=== PATIENT | male | born 1975 | race Caucasian/White ===

== ENCOUNTER 2017-03-24 09:43 | Emergency (ER) | payer BC ==
[2017-03-24 10:01] VITALS: BP 137/81
[2017-03-24] MEDS ORDERED: Sodium Chloride 0.9% 10 ML Syringe FLUSH PRN (10:35)
[2017-03-24] MEDS ORDERED: HYDROmorphone 1 MG/ML Syringe IVPUSH ONE (10:37)
[2017-03-24] MEDS ORDERED: Metoclopramide 10 MG/2 ML SDV IVPUSH ONE (10:38)
[2017-03-24] MEDS ORDERED: Clindamycin Phosphate 600 MG in Sodium Chloride 0.9% 100 ML IV ONE (10:38)
[2017-03-24] MEDS ORDERED: Lactated Ringers 1,000 ML IV SCH (10:45)
--- NOTE | 2017-03-24 10:50 | EDM.PDOC ---
ED HPI GENERAL MEDICAL PROBLEM - General Chief Complaint: Skin Complaint Stated Complaint: ABCESS ON HIS BUTOCK Time Seen by Provider: 03/24/17 10:06 Source of Information: Reports: Patient History Limitations: Reports: No Limitations - History of Present Illness INITIAL COMMENTS - FREE TEXT/NARRATIVE: The patient presents with an abscess to his buttocks. This started about 1 week ago. The pain has been getting worse and he went to the walk in clinic yesterday and they put him on some amoxicillin. There is more pain and swelling now. He denies fever or chills. He has no drainage today. He is scheduled to see Dr Monge on but he is not sure if he can make it. Onset: Gradual Duration: Week(s): (1) Location: Reports: Other (Left buttock) Quality: Reports: Sharp Severity: Severe Improves with: Reports: Immobilization Worsens with: Reports: Movement (and sitting down) Associated Symptoms: Reports: No Other Symptoms Rectal Pain Score (Numeric/FACES): 8 - Related Data Allergies Allergy/AdvReac Type Severity Reaction Status Date / Time No Known Allergies Allergy Verified 03/24/17 09:55 Home Meds: Home Meds Antibiotic Pill 1 tab PO BID 03/24/17 [History] Hydrocodone/Acetaminophen [Hydrocodon-Acetaminophen 5-325] 1 - 2 each PO Q6HR PRN #20 tablet 03/24/17 [Rx] Testerone Creme 1 mg PO DAILY 03/24/17 [History] metFORMIN [Glucophage] 1,000 mg PO BID 03/24/17 [History] Past Medical History Musculoskeletal History: Reports: Other (See Below) Other Musculoskeletal History: corrected foot surgery - Past Surgical History GI Surgical History: Reports: Appendectomy Social & Family History - Tobacco Use Smoking Status *Q: Never Smoker - Caffeine Use Caffeine Use: Reports: Coffee, Energy Drinks, Soda, Tea - Recreational Drug Use Recreational Drug Use: No ED ROS GENERAL - Review of Systems Review Of Systems: See Below Constitutional: Reports: No Symptoms HEENT: Reports: No Symptoms Respiratory: Reports: No Symptoms Cardiovascular: Reports: No Symptoms Endocrine: Reports: No Symptoms GI/Abdominal: Reports: No Symptoms : Reports: No Symptoms Musculoskeletal: Reports: No Symptoms Skin: Reports: Other (Abscess to the buttock) ED EXAM, SKIN/RASH Exam: See Below Exam Limited By: No Limitations General Appearance: Alert, No Apparent Distress Ears: Normal External Exam Nose: Normal Inspection Head: Atraumatic, Normocephalic Neck: Normal Inspection Respiratory/Chest: No Respiratory Distress Rectal (Males) Exam: Other (Perirectal abscess to the left of the anus. Pain upon palpation with erythema and edema.) Course - Vital Signs Last Recorded V/S: Last Vital Signs Temp 97.6 F 03/24/17 10:00 Pulse 86 03/24/17 10:00 Resp 20 03/24/17 10:00 BP 137/81 03/24/17 10:00 Pulse Ox 95 03/24/17 10:00 - Orders/Labs/Meds Orders: Active Orders 24 hr Category Date Time Status Peripheral IV Care [RC] . DIRECTED Care 03/24/17 10:35 Active Clindamycin Phosphate [Cleocin] 600 mg Med 03/24/17 10:38 Active Sodium Chloride 0.9% [Normal Saline] 100 ml IV ONETIME Lactated Ringers [Ringers, Lactated] 1,000 ml Med 03/24/17 10:45 Active IV ASDIRECTED Sodium Chloride 0.9% [Saline Flush] Med 03/24/17 10:35 Active 10 ml FLUSH ASDIRECTED PRN Peripheral IV Insertion Adult [OM.PC] Routine Oth 03/24/17 10:35 Ordered Medication Orders Clindamycin Phosphate 600 mg/ (Sodium Chloride) 104 mls @ 100 mls/hr IV ONETIME ONE Stop: 03/24/17 11:40 Lactated Ringer's (Ringers, Lactated) 1,000 mls @ 100 mls/hr IV ASDIRECTED MELISSA Sodium Chloride (Saline Flush) 10 ml FLUSH ASDIRECTED PRN PRN Reason: Keep Vein Open Meds: Medications Generic Name Dose Route Start Last Admin Trade Name Freq PRN Reason Stop Dose Admin Clindamycin Phosphate 600 mg/ 104 mls @ 100 mls/hr 03/24/17 10:38 Sodium Chloride IV 03/24/17 11:40 ONETIME ONE Lactated Ringer's 1,000 mls @ 100 mls/hr 03/24/17 10:45 Ringers, Lactated IV ASDIRECTED MELISSA Sodium Chloride 10 ml 03/24/17 10:35 Saline Flush FLUSH ASDIRECTED PRN Keep Vein Open Discontinued Medications Generic Name Dose Route Start Last Admin Trade Name Freq PRN Reason Stop Dose Admin Hydromorphone HCl 1 mg 03/24/17 10:37 Dilaudid IVPUSH 03/24/17 10:38 ONETIME ONE Metoclopramide HCl 10 mg 03/24/17 10:38 Reglan IVPUSH 03/24/17 10:39 ONETIME ONE - Re-Assessments/Exams Free Text/Narrative Re-Assessment/Exam: 03/24/17 10:47 I ordered an IV LR at 100mL/hr, reglan 10mg IV, dilaudid 1mg IV, and clindamycin 600mg IV. I called Dr Wynn and he will come take the patient to OR around noon. 03/24/17 11:02 The patient decided he did not want to get that done at this time. I will give him something for pain and he thinks the antibiotic was doxycycline and that would be more appropriate for where the infection is. Departure - Departure Time of Disposition: 11:10 Disposition: Home, Self-Care 01 Condition: Good Clinical Impression: Perirectal abscess - Discharge Information Prescriptions: Hydrocodone/Acetaminophen [Hydrocodon-Acetaminophen 5-325] 1 - 2 each PO Q6HR PRN #20 tablet PRN Reason: Pain Referrals: Joao Chan MD [Primary Care Provider] - Forms: ED Department Discharge Additional Instructions: Put warm compresses on the area a couple times per day and take the antibiotics as prescribed. You could take a hydrocodone as needed for pain. Follow up with Dr Monge. Please return if you are worse. - My Orders Last 24 Hours: My Active Orders 03/24/17 10:35 Peripheral IV Care [RC] . DIRECTED Sodium Chloride 0.9% [Saline Flush] 10 ml FLUSH ASDIRECTED PRN Peripheral IV Insertion Adult [OM.PC] Routine 03/24/17 10:38 Clindamycin Phosphate [Cleocin] 600 mg Sodium Chloride 0.9% [Normal Saline] 100 ml IV ONETIME 03/24/17 10:45 Lactated Ringers [Ringers, Lactated] 1,000 ml IV ASDIRECTED - Assessment/Plan Last 24 Hours: My Active Orders 03/24/17 10:35 Peripheral IV Care [RC] . DIRECTED Sodium Chloride 0.9% [Saline Flush] 10 ml FLUSH ASDIRECTED PRN Peripheral IV Insertion Adult [OM.PC] Routine 03/24/17 10:38 Clindamycin Phosphate [Cleocin] 600 mg Sodium Chloride 0.9% [Normal Saline] 100 ml IV ONETIME 03/24/17 10:45 Lactated Ringers [Ringers, Lactated] 1,000 ml IV ASDIRECTED
== END 2017-03-24 11:16 | disposition home or self-care (01) ==
LOC: JD.ED 09:43
DX: K61.1 Rectal abscess (principal); Z79.84 Long term (current) use of oral hypoglycemic drugs; Z79.899 Other long term (current) drug therapy; Z90.49 Acquired absence of other specified parts of digestive tract
CPT/HCPCS: 99283

== ENCOUNTER 2021-03-19 10:09 | Emergency (ER) | payer BC ==
[2021-03-19 10:22] VITALS: BP 146/91; PULSE 83
[2021-03-19] MEDS ORDERED: Aspirin 81 MG Tab.Chew PO ONE (10:37)
[2021-03-19] MEDS ORDERED: Sodium Chloride 0.9% 10 ML Syringe FLUSH PRN (10:37)
--- NOTE | 2021-03-19 12:31 | EDM.PDOC ---
ED HPI GENERAL MEDICAL PROBLEM - General Chief Complaint: Chest Pain Stated Complaint: CHEST PAIN Time Seen by Provider: 03/19/21 10:19 Source of Information: Reports: Patient, Family History Limitations: Reports: No Limitations - History of Present Illness INITIAL COMMENTS - FREE TEXT/NARRATIVE: The patient presents with left sided chest pain. This started Saturday and today it got much worse. He thought it was from leaving on a piece of equipment when he was working on it. Today he went for a walk with his and he had severe pain. He had to lay in the position in the car to get any relief. This has never happened to him before. He has some shortness of breath with it. He does not smoke. He has no history of heart disease. He does have border line diabetes. He has no history of hypertension or hypercholesterolemia. Onset: Gradual Duration: Day(s): (2) Location: Reports: Chest Quality: Reports: Sharp Severity: Severe Improves with: Reports: None Worsens with: Reports: None Associated Symptoms: Reports: Chest Pain, Shortness of Breath. Denies: Cough, Fever/Chills, Headaches, Nausea/Vomiting Left Chest Pain Score (Numeric/FACES): 10 - Related Data Allergies Allergy/AdvReac Type Severity Reaction Status Date / Time No Known Allergies Allergy Verified 03/19/21 10:22 Home Meds: Home Meds Testerone Creme 1 mg PO DAILY 03/24/17 [History] metFORMIN [Glucophage] 500 mg PO BID 03/24/17 [History] FLUoxetine HCl [Fluoxetine HCl] 20 mg PO DAILY 03/19/21 [History] Hydrocodone/Acetaminophen [Hydrocodone-Acetamin 5-325 mg] 1 - 2 each PO Q6H PRN #10 tablet 03/19/21 [Rx] Past Medical History Musculoskeletal History: Reports: Other (See Below) Other Musculoskeletal History: corrected foot surgery Psychiatric History: Reports: Depression - Infectious Disease History Infectious Disease History: Reports: Novel Coronavirus - Past Surgical History GI Surgical History: Reports: Appendectomy Social & Family History - Tobacco Use Tobacco Use Status *Q: Never Tobacco User - Caffeine Use Caffeine Use: Reports: Coffee - Recreational Drug Use Recreational Drug Use: No ED ROS GENERAL - Review of Systems Review Of Systems: See Below Constitutional: Reports: No Symptoms HEENT: Reports: No Symptoms Respiratory: Reports: Shortness of Breath Cardiovascular: Reports: Chest Pain Endocrine: Reports: No Symptoms GI/Abdominal: Reports: No Symptoms : Reports: No Symptoms Musculoskeletal: Reports: No Symptoms Skin: Reports: No Symptoms ED EXAM, GENERAL - Physical Exam Exam: See Below Exam Limited By: No Limitations General Appearance: Alert, No Apparent Distress Ears: Normal External Exam Nose: Normal Inspection Head: Atraumatic, Normocephalic Neck: Normal Inspection Respiratory/Chest: No Respiratory Distress, Lungs Clear, Normal Breath Sounds, Other (No pain upon palpation to the left chest. He says it is deeper then that) Cardiovascular: Regular Rate, Rhythm, No Edema, No Murmur GI/Abdominal: Soft, Non-Tender, No Organomegaly, No Mass Back Exam: Normal Inspection Extremities: Normal Inspection #1 Interpretation EKG Date: 03/19/21 Time: 10:19 Rhythm: NSR Rate (Beats/Min): 79 [place]: Normal P-Wave: Present QRS: Normal ST-T: Normal QT: Normal Course - Vital Signs Last Recorded V/S: Last Vital Signs Temp 97.8 F 03/19/21 10:19 Pulse 83 03/19/21 10:19 Resp 18 03/19/21 10:19 BP 146/91 H 03/19/21 10:19 Pulse Ox 94 L 03/19/21 10:19 - Orders/Labs/Meds Orders: Active Orders 24 hr Category Date Time Status Cardiac Monitoring [RC] . DIRECTED Care 03/19/21 10:37 Active EKG Documentation Completion [RC] STAT Care 03/19/21 10:37 Active Peripheral IV Care [RC] . DIRECTED Care 03/19/21 10:38 Active Ang Chest [CT] Stat Exams 03/19/21 11:25 Taken Chest 1V Frontal [CR] Stat Exams 03/19/21 10:38 Taken Sodium Chloride 0.9% [Saline Flush] Med 03/19/21 10:37 Active 10 ml FLUSH ASDIRECTED PRN Peripheral IV Insertion Adult [OM.PC] Stat Oth 03/19/21 10:37 Ordered Medication Orders Sodium Chloride (Sodium Chloride 0.9% 10 Ml Syringe) 10 ml FLUSH ASDIRECTED PRN PRN Reason: Keep Vein Open Last Admin: 03/19/21 10:41 Dose: 10 ml Documented by: SEAN Labs: Laboratory Tests 03/19/21 03/19/2121 Range/Units 10:30 10:30 10:30 WBC 5.03 (4.23-9.07) K/mm3 RBC 6.01 (4.63-6.08) M/mm3 Hgb 17.2 (13.7-17.5) gm/dl Hct 51.8 H (40.1-51.0) % MCV 86.2 (79.0-92.2) fl MCH 28.6 (25.7-32.2) pg MCHC 33.2 (32.2-35.5) g/dl RDW Std Deviation 46.0 H (35.1-43.9) fL Plt Count 221 (163-337) K/mm3 MPV 11.4 (9.4-12.3) fl Neut % (Auto) 56.7 (34.0-67.9) % Lymph % (Auto) 32.2 (21.8-53.1) % [place] % (Auto) 8.9 (5.3-12.2) % Eos % (Auto) 2.0 (0.8-7.0) Baso % (Auto) 0.2 (0.1-1.2) % Neut # (Auto) 2.85 (1.78-5.38) K/mm3 Lymph # (Auto) 1.62 (1.32-3.57) K/mm3 [place] # (Auto) 0.45 (0.30-0.82) K/mm3 Eos # (Auto) 0.10 (0.04-0.54) K/mm3 Baso # (Auto) 0.01 (0.01-0.08) K/mm3 D-Dimer, Quantitative 0.56 H (0.19-0.50) mg/L Sodium 143 (136-145) mEq/L Potassium 4.4 (3.5-5.1) mEq/L Chloride 107 (98-107) mEq/L Carbon Dioxide 26 (21-32) mEq/L Anion Gap 14.4 (5-15) BUN 13 (7-18) mg/dL Creatinine 1.0 (0.7-1.3) mg/dL Est Cr Clr Drug Dosing 105.03 mL/min Estimated GFR (MDRD) > 60 (>60) mL/min BUN/Creatinine Ratio 13.0 L (14-18) Glucose 128 H (70-99) mg/dL Calcium 8.1 L (8.5-10.1) mg/dL Total Bilirubin 0.6 (0.2-1.0) mg/dL AST 20 (15-37) U/L ALT 49 (16-63) U/L Alkaline Phosphatase 67 (46-116) U/L Troponin I < 0.017 (0.00-0.056) ng/mL Total Protein 6.8 (6.4-8.2) g/dl Albumin 3.8 (3.4-5.0) g/dl Globulin 3.0 gm/dL Albumin/Globulin Ratio 1.3 (1-2) Meds: Medications Generic Name Dose Route Start Last Admin Trade Name Freq PRN Reason Stop Dose Admin Sodium Chloride 10 ml 03/19/21 10:37 03/19/21 10:41 Sodium Chloride 0.9% 10 Ml Syringe FLUSH 10 ml ASDIRECTED PRN Administration Keep Vein Open Discontinued Medications Generic Name Dose Route Start Last Admin Trade Name Freq PRN Reason Stop Dose Admin Aspirin 324 mg 03/19/21 10:37 03/19/21 10:50 Aspirin 81 Mg Tab.Chew PO 03/19/21 10:38 324 mg ONETIME ONE Administration - Re-Assessments/Exams Free Text/Narrative Re-Assessment/Exam: 03/19/21 12:33 I ordered an IV saline lock, EKG, CXR, labs and aspirin. His EKG shows a NSR with no acute changes. His CXR looks good. His CBC is normal. His d-dimer is elevated at 0.56. His CMP looks good. His troponin is negative. I have ordered a CT angio of his chest. 03/19/21 13:[address] shows no pulmonary emboli. Left adrenal nodule consistent with benign adenoma. He still has some pain. I feel this is chest wall. Departure - Departure Time of Disposition: 13:25 Disposition: Home, Self-Care 01 Condition: Good Clinical Impression: Chest wall pain Prescriptions: Hydrocodone/Acetaminophen [Hydrocodone-Acetamin 5-325 mg] 1 - 2 each PO Q6H PRN #10 tablet PRN Reason: Pain Referrals: Joao Chan MD [Primary Care Provider] - 1 Week Forms: ED Department Discharge Additional Instructions: Take tylenol or motrin as needed for pain. If that does not work, try the hydrocodone. Follow up with your doctor this week. Please return if you are worse. Sepsis Event Note (ED) - Focused Exam Vital Signs: Vital Signs Temp Pulse Resp BP Pulse Ox 03/19/21 10:19 97.8 F 83 18 146/91 H 94 L - My Orders Last 24 Hours: My Active Orders 03/19/21 10:37 Cardiac Monitoring [RC] . DIRECTED EKG Documentation Completion [RC] STAT Sodium Chloride 0.9% [Saline Flush] 10 ml FLUSH ASDIRECTED PRN Peripheral IV Insertion Adult [OM.PC] Stat 03/19/21 10:38 Peripheral IV Care [RC] . DIRECTED Chest 1V Frontal [CR] Stat 03/19/21 11:25 Ang Chest [CT] Stat - Assessment/Plan Last 24 Hours: My Active Orders 03/19/21 10:37 Cardiac Monitoring [RC] . DIRECTED EKG Documentation Completion [RC] STAT Sodium Chloride 0.9% [Saline Flush] 10 ml FLUSH ASDIRECTED PRN Peripheral IV Insertion Adult [OM.PC] Stat 03/19/21 10:38 Peripheral IV Care [RC] . DIRECTED Chest 1V Frontal [CR] Stat 03/19/21 11:25 Ang Chest [CT] Stat
[2021-03-19] MEDS ORDERED: HYDROmorphone 0.5 MG/0.5 ML Syringe IVPUSH ONE (13:16)
--- NOTE | 2021-03-19 19:37 | CT ---
CT chest Technique: Multiple axial sections were obtained from above the dome of the diaphragm inferiorly through the pubic symphysis. Intravenous contrast was utilized. Study has been performed as a pulmonary angiogram protocol. Comparison: No prior chest imaging is available. Findings: Pulmonary arteries are well opacified. No filling defects are seen to indicate pulmonary embolism. Thoracic aorta shows no aneurysm. Mediastinum and hilar regions show no adenopathy. No pericardial thickening is appreciated. Visualized upper abdominal structures show a low-density lesion within the left adrenal gland measuring 1.9 cm most likely representing a small adrenal adenoma. Lungs show no acute parenchymal change. Minimal dependent atelectasis is noted posteriorly within both lungs. Bone window settings were reviewed which show scattered endplate spurring within the mid and lower thoracic spine. No acute osseous abnormality is appreciated. Impression: 1. No findings of pulmonary embolism. 2. Left adrenal nodule most likely representing a benign adenoma. 3. Nothing acute is otherwise seen. Diagnostic code #2 I agree with preliminary report from [facility], finalized on 03/19/21, 1:51 PM CDT, code 1 Diagnostic code #1
--- NOTE | 2021-03-19 19:47 | CR ---
Chest: Portable view of the chest was obtained. Comparison: No prior chest imaging is available. Heart size and mediastinum are normal. Lungs are clear with no acute parenchymal change. Bony structures show nothing acute. Impression: 1. Nothing acute is seen on portable chest x-ray. Diagnostic code #1
== END 2021-03-19 13:30 | disposition home or self-care (01) ==
LOC: JD.ED 10:09
DX: R07.89 Other chest pain (principal); R79.1 Abnormal coagulation profile; Z86.16 Personal history of COVID-19
CPT/HCPCS: 36415; 71045; 71275; 80053; 84484; 85025; 85379; 93005; 96374; 99285; A9270; J1170; 93010; 99284

== ENCOUNTER 2021-03-22 06:43 | Emergency (ER) | payer BC ==
[2021-03-22 06:51] VITALS: BP 145/88; PULSE 82
[2021-03-22] MEDS ORDERED: cefTRIAXone 1 GM in Sodium Chloride 0.9% 100 ML IV STA (07:09)
[2021-03-22] MEDS ORDERED: HYDROmorphone 1 MG/ML Syringe IVPUSH ONE (07:09)
[2021-03-22] MEDS ORDERED: Diphtheria,Pertussis(Acell),Tetanus Vaccine 0.5 ML Syringe IM ONE (07:10)
[2021-03-22] MEDS ORDERED: Sodium Chloride 0.9% 1,000 ML IV SCH (07:15)
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
--- NOTE | 2021-03-22 09:34 | CR ---
Right femur: AP and lateral views of the right femur were obtained. Comparison: No previous right femur study is available. Lucent line is seen on the AP view within the distal diaphysis of the femur which is felt to be due to a normal fat plane. No discrete fracture is appreciated. Mild medial joint space narrowing seen within the knee. Joint space within the right hip is preserved. Soft tissue swelling is noted. No radiopaque foreign object is seen. Impression: 1. No radiopaque foreign object is seen. 2. Soft tissue swelling and minimal degenerative change. Diagnostic code #2
== END 2021-03-22 08:48 | disposition home or self-care (01) ==
LOC: JD.ED 06:43
DX: S71.131A Puncture wound without foreign body, right thigh, initial encounter (principal); Z23 Encounter for immunization; Z86.16 Personal history of COVID-19; W32.0XXA Accidental handgun discharge, initial encounter
CPT/HCPCS: 73552; 90471; 90715; 96365; 96375; 99284; J0696; J1170; J7030

== ENCOUNTER 2021-12-12 05:34 | Emergency (ER) | payer BC ==
[2021-12-12 05:53] VITALS: BP 128/71; PULSE 102
[2021-12-12] MEDS ORDERED: Cetirizine 10 MG Tab PO ONE (06:10)
== END 2021-12-12 06:29 | disposition home or self-care (01) ==
LOC: JD.ED 05:34
DX: T78.3XXA Angioneurotic edema, initial encounter (principal); Z28.310 Unvaccinated for COVID-19
CPT/HCPCS: 99283; A9270

== ENCOUNTER 2023-11-16 15:44 | Emergency (ER) | payer BC, OTHER ==
[2023-11-16 16:30] VITALS: BP 127/90; PULSE 104
== END 2023-11-16 19:23 | disposition home or self-care (01) ==
LOC: JD.ED 15:44
DX: S82.142A Displaced bicondylar fracture of left tibia, initial encounter for closed fracture (principal); E11.9 Type 2 diabetes mellitus without complications; Z79.84 Long term (current) use of oral hypoglycemic drugs; Z86.16 Personal history of COVID-19; Z79.899 Other long term (current) drug therapy; W23.1XXA Caught, crushed, jammed, or pinched between stationary objects, initial encounter
CPT/HCPCS: 73564-26-LT; 73564-LT; 73590-26-LT; 73590-LT; 99282; 99283